=== PATIENT | female | born 1965 | race Two or more races ===

== ENCOUNTER 2018-02-24 20:58 | Emergency (ER) | payer MEDICAID, OTHER ==
[~2018-02-24] VITALS: Ht 160 cm; Wt 86.2 kg
[2018-02-24 22:30] VITALS: BP 152/87
[2018-02-24 22:49] LABS: APPEARANCE,URINE CLOUDY; BILIRUBIN, URINE NEGATIVE (NEGATIVE); GLUCOSE, URINE (UA) NEGATIVE (NEGATIVE); KETONES,URINE 1+ (NEGATIVE); LEUKOCYTE ESTERASE ,URINE 3+ (NEGATIVE); NITRITE,URINE NEGATIVE (NEGATIVE); PH,URINE 5 (4.5-8.0); PROTEIN,URINE 2+ (NEGATIVE); UROBILINOGEN,URINE 1 MG/DL (0.0-1.0)
[2018-02-24 22:50] LABS: COLOR,URINE YELLOW
[2018-02-24 22:52] LABS: BASOPHILS % (AUTO) 0.9 % (0.0-2.0); EOSINOPHILS % (AUTO) 0.3 % (0.0-3.0); HEMATOCRIT 31.6 % (37.0-47.0); HEMOGLOBIN 10.4 G/DL (12.0-16.0); LYMPHOCYTES % (AUTO) 32.4 % (20.0-45.0); MEAN CORPUSCULAR VOLUME 89 FL (80-99); MONOCYTES % (AUTO) 5.6 % (1.0-10.0); NEUTROPHILS % (AUTO) 60.8 % (45.0-75.0); PLATELET COUNT 387 K/UL (150-450); RED BLOOD COUNT 3.53 M/UL (4.20-5.40); RED CELL DISTRIBUTION WIDTH 13.3 % (11.6-14.8); WHITE BLOOD COUNT 11.8 K/UL (4.8-10.8)
[2018-02-24 22:58] LABS: ANION GAP 8 mmol/L (5-15); BLOOD UREA NITROGEN 23 mg/dL (7-18); CALCIUM 9.6 MG/DL (8.5-10.1); CARBON DIOXIDE 29 MMOL/L (21-32); CHLORIDE 97 MMOL/L (98-107); CREATININE 0.7 MG/DL (0.55-1.30); POTASSIUM 3.9 MMOL/L (3.5-5.1); SODIUM 134 MMOL/L (136-145)
[2018-02-24] MEDS ORDERED: Cefepime HCl 1 GM in D5W 55 ML IVPB ONE (23:00)
[2018-02-24 23:02] LABS: ALANINE AMINOTRANSFERASE 42 U/L (12-78); ALBUMIN 2.8 G/DL (3.4-5.0); ALBUMIN/GLOBULIN RATIO 0.7 (1.0-2.7); ALKALINE PHOSPHATASE 261 U/L (46-116); ASPARTATE AMINO TRANSFERASE 18 U/L (15-37); BILIRUBIN,TOTAL 0.9 MG/DL (0.2-1.0)
[2018-02-24] MEDS ORDERED: Morphine Sulfate 4mg/ml Inj IVP ONE (23:15)
[2018-02-25 01:03] VITALS: BP 123/83
--- NOTE | 2018-02-25 01:53 | Emergency Room Report ---
History of Present Illness General Chief Complaint: Gastrointestinal Bleed Source: Patient, Family Member, Medical Record Present Illness HPI Mild redness to the head of the penis. He has severe phimosis. There is small hole where he can urinate from. Unable to retract foreskin. Is a 52-year-old female who has a history of CVAs. She is bedbound. Also has a history of diabetes. She presents with chief complaint of rectal bleeding. She had this issue before. In January when she had her stroke, she had a large rectal bleeding requiring 4 units of blood. She had colonoscopy and endoscopy per daughter. Unable to find the etiology. Few weeks later, she was admitted again for for another rectal bleeding. She required 1 unit of blood. Bleeding stopped and she was sent to a [facility]. She present today with rectal bleeding. No fever or chills. Bleeding is bright red. No nausea no vomiting. No fever or chills. No abdominal pain. She does complaining of bilateral leg pain. Allergies: Coded Allergies: ALTEPLASE (Verified Allergy, Unknown, 02/24/18) Patient History Past Medical History: see triage record, old chart reviewed, DM, CVA/TIA Past Surgical History: other Pertinent Family History: none Social History: Denies: smoking Now: No Immunizations: other Reviewed Nursing Documentation: PMH: Agreed; PSxH: Agreed Nursing Documentation-PMH Hx Cardiac Problems: Yes - A. fib Hx Hypertension: Yes - hyperlipidemia Hx Diabetes: Yes Hx Cerebrovascular Accident: Yes - hemiplegia, hemiparesis Review of Systems Eye: Denies: eye pain, blurred vision ENT: Denies: ear pain, nose congestion, throat swelling Respiratory: Denies: cough, shortness of breath Cardiovascular: Denies: chest pain, palpitations Gastrointestinal: Denies: abdominal pain, diarrhea, nausea, vomiting Musculoskeletal: Denies: back pain, joint pain Skin: Denies: rash Neurological: Denies: headache, numbness Endocrine: Denies: increased thirst, increased urine Hematologic/Lymphatic: Denies: easy bruising All Other Systems: negative except mentioned in HPI Physical Exam Vital Signs Date Time Temp Pulse Resp B/P (MAP) Pulse Ox O2 Delivery O2 Flow Rate FiO2 02/24/18 20:58 98.5 109 14 107/70 100 Trach Collar 2.0 98.4 vitals with tachycardia Sp02 EP Interpretation: reviewed, normal General Appearance: well appearing, no apparent distress, alert Head: normocephalic, atraumatic Eyes: bilateral eye PERRL, bilateral eye EOMI ENT: hearing grossly normal, normal pharynx Neck: full range of motion, supple, no meningismus Respiratory: chest non-tender, lungs clear, normal breath sounds Cardiovascular #1: regular rate, rhythm, no murmur Gastrointestinal: normal bowel sounds, non tender, no mass, no organomegaly, no bruit, non-distended Rectal: blood streaked stool Genitourinary: other - also with vaginal bleeding. pt said that she still has her menstruation. Musculoskeletal: back normal Neurologic: alert Psychiatric: mood/affect normal Skin: warm/dry Medical Decision Making Diagnostic Impression: Primary Impression: Gastrointestinal hemorrhage Qualified Codes: K92.2 - Gastrointestinal hemorrhage, unspecified Additional Impressions: Anemia Qualified Codes: D64.9 - Anemia, unspecified Hyperglycemia due to type 2 diabetes mellitus Qualified Codes: E11.65 - Type 2 diabetes mellitus with hyperglycemia; Z79.4 - intermediate (current) use of insulin UTI (urinary tract infection) Qualified Codes: N30.00 - Acute cystitis without hematuria Proteinuria Qualified Codes: R80.9 - Proteinuria, unspecified ER Course Patient presents with GI bleeding. This may be secondary to vaginal bleeding also. Per history, she had endoscopy and colonoscopy already. Source of bleeding may be secondary to small bowel bleed. Hemoglobin stable. It may drop. I discussed the case with Dr. Moreno who accepted the patient for transfer to [facility]. Lab Results Impression labs with anemia Rhythm Strip Diag. Results Rhythm Strip Time: 01:53 EP Interpretation: yes Rate: 96 Rhythm: NSR, no PVC's, no ectopy Last Vital Signs Date Time Temp Pulse Resp B/P (MAP) Pulse Ox O2 Delivery O2 Flow Rate FiO2 02/25/18 01:03 98.0 93 21 123/83 100 Trach Collar 2.0 98.0 Status: improved Disposition: XFER [facility] Condition: Stable Referrals: Nic Meza MD (PCP) KAIA SPENCER M.D. Feb 25, 2018 01:53
[2018-02-25 03:14] VITALS: BP 105/64
[2018-02-25 03:16] VITALS: BP 105/64
== END 2018-02-25 03:16 | disposition short-term general hospital (02) ==
LOC: EDBD 20:58 → EMR 21:48
DX: K92.2 Gastrointestinal hemorrhage, unspecified (principal); D64.9 Anemia, unspecified; E11.65 Type 2 diabetes mellitus with hyperglycemia; Z79.4 Long term (current) use of insulin; N30.00 Acute cystitis without hematuria; R80.9 Proteinuria, unspecified; Z88.8 Allergy status to other drugs, medicaments and biological substances; I48.91 Unspecified atrial fibrillation; I10 Essential (primary) hypertension; E78.5 Hyperlipidemia, unspecified; E11.9 Type 2 diabetes mellitus without complications; I69.859 Hemiplegia and hemiparesis following other cerebrovascular disease affecting unspecified side
CPT/HCPCS: 36415; 80053; 81003; 82962; 85025; 85610; 85730; 86850; 86900; 86901; 87086; 99283; J0692; J2270

== ENCOUNTER 2018-04-07 10:58 | Emergency (ER) | payer OTHER ==
[~2018-04-07] VITALS: Ht 162.6 cm; Wt 72.6 kg
[2018-04-07 11:25] VITALS: BP 147/92
[2018-04-07 11:33] LABS: HEMATOCRIT 39.1 % (37.0-47.0); HEMOGLOBIN 12.7 G/DL (12.0-16.0); MEAN CORPUSCULAR VOLUME 85 FL (80-99); PLATELET COUNT 475 K/UL (150-450); RED BLOOD COUNT 4.58 M/UL (4.20-5.40); RED CELL DISTRIBUTION WIDTH 12.7 % (11.6-14.8)
[2018-04-07 11:36] LABS: WHITE BLOOD COUNT 22.2 K/UL (4.8-10.8)
[2018-04-07 11:49] LABS: ANION GAP 12 mmol/L (5-15); BLOOD UREA NITROGEN 21 mg/dL (7-18); CALCIUM 10.6 MG/DL (8.5-10.1); CARBON DIOXIDE 27 MMOL/L (21-32); CHLORIDE 97 MMOL/L (98-107); CREATININE 0.8 MG/DL (0.55-1.30); POTASSIUM 3.7 MMOL/L (3.5-5.1); SODIUM 136 MMOL/L (136-145)
[2018-04-07 12:02] LABS: ALANINE AMINOTRANSFERASE 55 U/L (12-78); ALBUMIN 3.2 G/DL (3.4-5.0); ALBUMIN/GLOBULIN RATIO 0.6 (1.0-2.7); ALKALINE PHOSPHATASE 270 U/L (46-116); ASPARTATE AMINO TRANSFERASE 50 U/L (15-37); BILIRUBIN,TOTAL 0.6 MG/DL (0.2-1.0); CKMB 1.7 NG/ML (0.0-3.6); CREATINE KINASE 91 U/L (26-308)
--- NOTE | 2018-04-07 12:03 | Diagnostic Imaging Report ---
Indication: Chest pain Technique: XRAY Chest 1v Comparison: None Findings: Tracheostomy tube in place. Heart appears mildly enlarged. There is streaky opacity at the medial right base thought to related to subsegmental atelectasis. Costophrenic sulci appear sharp. No definite pneumothorax. There are degenerative changes in the spine. Impression: Streaky opacities at the medial right base thought to be related to subsegmental atelectasis. Clinical correlation/follow-up recommended to exclude the possibility of developing infectious infiltrate.
[2018-04-07 12:15] LABS: APPEARANCE,URINE SLIGHTLY CLOUDY; BILIRUBIN, URINE NEGATIVE (NEGATIVE); COLOR,URINE PALE YELLOW; GLUCOSE, URINE (UA) NEGATIVE (NEGATIVE); KETONES,URINE NEGATIVE (NEGATIVE); LEUKOCYTE ESTERASE ,URINE 3+ (NEGATIVE); NITRITE,URINE NEGATIVE (NEGATIVE); PH,URINE 9 (4.5-8.0); PROTEIN,URINE 2+ (NEGATIVE); UROBILINOGEN,URINE NORMAL MG/DL (0.0-1.0)
[2018-04-07] MEDS ORDERED: cefTRIAXone 1 GM in NS 55 ML IVPB ONE (12:30)
[2018-04-07] MEDS ORDERED: Azithromycin 500 MG in NS 275 ML IV ONE (12:30)
[2018-04-07 12:41] VITALS: BP 139/80
--- NOTE | 2018-04-07 14:21 | Emergency Room Report ---
History of Present Illness General Chief Complaint: Abnormal Labs Source: Medical Record Present Illness HPI This patient is SNF trach/but no ventilator. Here b/c had blood draw with leukocytosis 20k. Pt. is alert but cannot communicate with me. She nods head yes /no seemingly appropriate to my questions. I do not think she is uncomfortable. There is no report of fever. PMH: stroke hemiplegia, trach, a fib, GI bleed, DM Allergies: Coded Allergies: ALTEPLASE (Verified Allergy, Unknown, 02/24/18) Patient History Last Menstrual Period: unk Now: No Nursing Documentation-PMH Hx Hypertension: Yes Hx Diabetes: Yes Hx Gastrointestinal Problems: Yes - GI hemorrhage Hx Cerebrovascular Accident: Yes - hemiplegia, hemiparesis Review of Systems Constitutional: Reports: see HPI All Other Systems: limited Physical Exam Vital Signs Date Time Temp Pulse Resp B/P (MAP) Pulse Ox O2 Delivery O2 Flow Rate FiO2 04/07/18 10:58 98.6 88 24 154/92 98 Endotracheal Tube 3.0 98.6 Sp02 EP Interpretation: reviewed, normal General Appearance: obese Head: normocephalic, atraumatic ENT: moist mucus membranes Neck: tracheotomy Respiratory: lungs clear, normal breath sounds, no respiratory distress Cardiovascular #1: regular rate, rhythm Gastrointestinal: other - g-tube Neurologic: alert, responsive Medical Decision Making Diagnostic Impression: Primary Impression: Pneumonia Additional Impressions: Urinary tract infection Tracheostomy present ER Course Leukocytosis increased to 22k. I think there is a pneumonia on CXR. Definite UTI. Rx. Ceftriaxone, Zithromax. Stable for transfer. D/w accepted Dr. Moreno accepted to [facility]. Rhythm Strip Diag. Results Rhythm Strip Time: 14:34 EP Interpretation: yes Rate: 81 Rhythm: NSR Last Vital Signs Date Time Temp Pulse Resp B/P (MAP) Pulse Ox O2 Delivery O2 Flow Rate FiO2 04/07/18 12:41 99.0 93 18 139/80 100 Trach Collar 3.0 99.0 Status: unchanged Disposition: XFER [facility] Condition: Serious Referrals: [facility],REFERRING (PCP) Zak Walters M.D. Apr 07, 2018 14:21
[2018-04-07 14:32] VITALS: BP 138/77
[2018-04-07] MEDS ORDERED: Albuterol ud Inhalation HHN ONE (16:30)
[2018-04-07] MEDS ORDERED: Ipratropium 0.02% Inh Soln 2.5ml UD HHN ONE (16:30)
[2018-04-07] MEDS ORDERED: DiphenhydrAMINE 50mg/ml Inj IVP ONE (16:30)
[2018-04-07] MEDS ORDERED: Solu-MEDROL 125mg Inj IVP ONE (16:30)
[2018-04-07 16:49] VITALS: BP 149/93
[2018-04-07 17:13] VITALS: BP 138/77
--- NOTE | 2018-04-08 00:30 | History and Physical Report ---
DATE OF ADMISSION: 04/07/2018 REASON FOR ADMISSION: Abnormal labs and respiratory failure. 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 The patient with noted leukocytosis, was transferred for further evaluation. The patient also noted to have some fevers. The patient's care was discussed and reviewed. The patient is unable to give much in the way of history. The patient is seen and evaluated in the emergency room and was worked up. Chest x-ray with possible pneumonia and possible UTI on urinalysis. PAST MEDICAL HISTORY: Notable for focal hemiplegia, stroke, trach, G-tube, atrial fibrillation paroxysmal, GI bleed, and diabetes. MEDICATIONS: Reviewed. ALLERGIES: Reviewed. REVIEW OF SYSTEMS: Difficult to obtain. History of GI bleed. History of hemiplegia and aspiration. PHYSICAL EXAMINATION: GENERAL: A well-developed female, comfortable. No acute distress. VITAL SIGNS: Blood pressure 130/77, saturations 100% on 3 liters 74, and temperature 99 degrees. HEENT: Negative. NECK: Supple. LUNGS: With scattered rhonchi. Moderate air entry. CARDIAC: S1 and S2. Rate controlled. No murmurs, rubs, or gallops. ABDOMEN: Soft, nontender, and nondistended. G-tube in place. EXTREMITIES: No cyanosis, clubbing, or edema. Focal hemiplegia is noted. LABORATORY AND DIAGNOSTIC DATA: Lab data reviewed. White count 22, otherwise negative. Chemistries otherwise negative. BUN 21 and creatinine 0.8. Alkaline phosphatase 270. Albumin 3.2. IMPRESSION: 1. Leukocytosis, possible sepsis, possible pneumonia. 2. Mild azotemia. 3. Elevated alkaline phosphatase. 4. Mild protein-calorie malnutrition. 5. Focal hemiplegia. 6. History of CVA. RECOMMENDATIONS: Supportive care. IV antibiotics. Respiratory care. IV hydration. Resume medications. Monitor clinically. Aspiration precautions. Resume feeds and we will follow clinically for further changes and interventions. Jin Appiah M.D. DR: RACHELL JOB#: [id number] CC: ARACELY
== END 2018-04-07 17:13 | disposition short-term general hospital (02) ==
LOC: EDBD 10:58 → EMR 11:28
DX: J18.9 Pneumonia, unspecified organism (principal); N39.0 Urinary tract infection, site not specified; Z93.0 Tracheostomy status; I10 Essential (primary) hypertension; E11.9 Type 2 diabetes mellitus without complications; I69.859 Hemiplegia and hemiparesis following other cerebrovascular disease affecting unspecified side; I48.91 Unspecified atrial fibrillation; Z88.8 Allergy status to other drugs, medicaments and biological substances
CPT/HCPCS: 36415; 71045; 80053; 81003; 82550; 82553; 83605; 84484; 85007; 85025; 87040; 87081; 87086; 87181; 93005; 94640; 94664; 96365; 96368; 96375; 99284; J0456; J0696; J1200; J2930; J7050